=== PATIENT | male | born 1975 | race Caucasian/White ===

== ENCOUNTER 2021-09-22 17:01 | Emergency (ER) | payer OTHER ==
[2021-09-22 17:06] VITALS: BP 122/74; PULSE 70; TEMP 98; BMI 24.3
[2021-09-22] MEDS ORDERED: KETOROLAC TROMETHAMINE 30 MG/1 ML VIAL IM ONE (18:02)
[2021-09-22] MEDS ORDERED: KETOROLAC TROMETHAMINE 30 MG/1 ML VIAL ONE (18:04)
== END 2021-09-22 18:40 | disposition home or self-care (01) ==
LOC: JERFT 17:01
PROC: 3E023GC Introduction of Other Therapeutic Substance into Muscle, Percutaneous Approach (ICD-10-PCS; principal; 2021-09-22)
DX: S16.1XXA Strain of muscle, fascia and tendon at neck level, initial encounter (principal); M25.511 Pain in right shoulder; Y04.8XXA Assault by other bodily force, initial encounter
CPT/HCPCS: 72040-TC; 73030-TC-RT-FY; 99284-25